=== PATIENT | female | born 1990 | race Caucasian/White ===

== ENCOUNTER → 2018-01-12 | Outpatient (CLI) | payer OTHER | END | disposition home or self-care (01) | LOC: HKI 13:33 | DX: M22.2X1 Patellofemoral disorders, right knee (principal) | CPT/HCPCS: 20610 ==

== ENCOUNTER 2018-03-08 04:51 | Inpatient (IN) | payer OTHER ==
[2018-03-08] MEDS ORDERED: morphine 2 MG INJ IV (06:00)
[2018-03-08] MEDS ORDERED: ACETAMINOPHEN 325 MG TAB PO (06:00)
[2018-03-08] MEDS ORDERED: NACL 0.9% 3 ML SYG IV (06:00)
[2018-03-08] MEDS: morphine 4 MG/ML VIAL IV (06:29)
[2018-03-08] MEDS ORDERED: VANCOMYCIN IV PER PHARMACY XX (07:30)
[2018-03-08] MEDS: CEFEPIME 1GM/50 ML (PMX) 50 ML IVPB ×3 (08:18→21:34)
[2018-03-08] MEDS: HYDROCODONE/APAP (5/325) TAB PO ×2 (08:18→16:38)
[2018-03-08] MEDS: ENOXAPARIN 40 MG/0.4 ML SYG SC (08:20)
[2018-03-08 08:38] LABS: ADD MAN DIFF? NO
[2018-03-08 08:45] LABS: WHITE BLOOD COUNT 7.8 10^3/ul (4.8-10.8)
[2018-03-08 08:45] LABS: BASOPHILS % 0.3 % (0.0-2.0); EOSINOPHILS # 0.3 10^3/ul (0.0-0.5); EOSINOPHILS % 3.2 % (0.0-7.0); HEMATOCRIT 39.9 % (37.0-47.0); HEMOGLOBIN 12.6 g/dl (12.0-16.0); LYMPHOCYTES # 1.8 10^3/ul (0.8-2.9); LYMPHOCYTES % 23.7 % (15.0-51.0); MEAN CORPUSCULAR HEMOGLOBIN 27.6 pg (29.0-33.0); MEAN CORPUSCULAR HGB CONC 31.6 g/dl (32.0-37.0); MEAN CORPUSCULAR VOLUME 87.5 fl (82.0-101.0); MEAN PLATELET VOLUME 11.3 fl (7.4-10.4); MONOCYTE # 0.5 10^3/ul (0.3-0.9); MONOCYTES % 6.4 % (0.0-11.0); NEUTROPHIL # 5.1 10^3/ul (1.6-7.5); PLATELET COUNT 282 10^3/UL (140-415); RED BLOOD COUNT 4.56 10^6/ul (4.20-5.40); RED CELL DISTRIBUTION WIDTH 13.1 % (11.5-14.5)
[2018-03-08] MEDS ORDERED: CEFEPIME 1GM/50 ML (PMX) 50 ML IVPB (09:00)
[2018-03-08 09:06] LABS: ALANINE AMINOTRANSFERASE 28 IU/L (13-69); ALBUMIN 3.7 g/dl (3.3-4.9); ALBUMIN/GLOBULIN RATIO 1.19; ALKALINE PHOSPHATASE 84 IU/L (42-121); ANION GAP 9 (5-13); ASPARTATE AMINO TRANSFERASE 24 IU/L (15-46); BILIRUBIN,INDIRECT 0.1 mg/dl (0-1.1); BILIRUBIN,TOTAL 0.1 mg/dl (0.2-1.3); BLOOD UREA NITROGEN 15 mg/dl (7-20); CALCIUM 8.8 mg/dl (8.4-10.2); CARBON DIOXIDE 25 mmol/L (21-31); CHLORIDE 107 mmol/L (97-110); CHOL/HDL RATIO 3.4 RATIO; CHOLESTEROL 99 mg/dl (100-200); CREATININE 0.71 mg/dl (0.44-1.00); Estimated GFR > 60 mL/min (>60); GLUCOSE 97 mg/dl (70-220); HDL CHOLESTEROL 29 mg/dl (33-83); LDL CHOLESTEROL,CALCULATED 44 mg/dl; POTASSIUM 4.3 mmol/L (3.5-5.1); SODIUM 141 mmol/L (135-144); TOTAL PROTEIN 6.8 g/dl (6.1-8.1); TRIGLYCERIDES 129 mg/dl (0-149)
[2018-03-08 09:25] LABS: HEMOGLOBIN A1C 5.7 % (0-5.9)
[2018-03-08] MEDS: VANCOMYCIN HCL 2 GM in SOD CHLORIDE 0.9% 500 ML IVPB (09:50)
[2018-03-08] MEDS: ONDANSETRON 4 MG INJ IV (17:52)
[2018-03-08] MEDS: VANCOMYCIN 1 GM 250 ML IVPB (17:52)
[2018-03-09] MEDS: VANCOMYCIN 1 GM 250 ML IVPB ×3 (01:49→17:21)
[2018-03-09 05:19] LABS: ADD MAN DIFF? NO
[2018-03-09 05:25] LABS: WHITE BLOOD COUNT 6.5 10^3/ul (4.8-10.8)
[2018-03-09 05:25] LABS: BASOPHILS % 0.3 % (0.0-2.0); EOSINOPHILS # 0.2 10^3/ul (0.0-0.5); EOSINOPHILS % 3.2 % (0.0-7.0); HEMATOCRIT 39.1 % (37.0-47.0); HEMOGLOBIN 12.4 g/dl (12.0-16.0); LYMPHOCYTES # 1.9 10^3/ul (0.8-2.9); LYMPHOCYTES % 28.5 % (15.0-51.0); MEAN CORPUSCULAR HEMOGLOBIN 27.5 pg (29.0-33.0); MEAN CORPUSCULAR HGB CONC 31.7 g/dl (32.0-37.0); MEAN CORPUSCULAR VOLUME 86.7 fl (82.0-101.0); MEAN PLATELET VOLUME 11.4 fl (7.4-10.4); MONOCYTE # 0.5 10^3/ul (0.3-0.9); MONOCYTES % 7.4 % (0.0-11.0); NEUTROPHIL # 3.9 10^3/ul (1.6-7.5); NEUTROPHILS % 60.1 % (39.0-77.0); PLATELET COUNT 271 10^3/UL (140-415); RED BLOOD COUNT 4.51 10^6/ul (4.20-5.40); RED CELL DISTRIBUTION WIDTH 13.2 % (11.5-14.5)
[2018-03-09] MEDS: CEFEPIME 1GM/50 ML (PMX) 50 ML IVPB ×3 (05:38→21:42)
[2018-03-09 05:49] LABS: ANION GAP 9 (5-13); BLOOD UREA NITROGEN 12 mg/dl (7-20); CALCIUM 9.1 mg/dl (8.4-10.2); CARBON DIOXIDE 25 mmol/L (21-31); CHLORIDE 105 mmol/L (97-110); CREATININE 0.69 mg/dl (0.44-1.00); Estimated GFR > 60 mL/min (>60); GLUCOSE 106 mg/dl (70-220); PHOSPHORUS 4.7 mg/dl (2.5-4.9); POTASSIUM 4.4 mmol/L (3.5-5.1); SODIUM 139 mmol/L (135-144)
[2018-03-09] MEDS: HYDROCODONE/APAP (5/325) TAB PO ×2 (06:36→22:01)
[2018-03-09] MEDS: ENOXAPARIN 40 MG/0.4 ML SYG SC (08:26)
[2018-03-09 09:30] LABS: VANCOMYCIN,TROUGH 11.3 ug/ml (10.0-20.0)
[2018-03-10] MEDS: VANCOMYCIN 1 GM 250 ML IVPB ×2 (02:01→10:12)
[2018-03-10] MEDS: CEFEPIME 1GM/50 ML (PMX) 50 ML IVPB ×2 (05:25→14:20)
[2018-03-10] MEDS: HYDROCODONE/APAP (5/325) TAB PO ×2 (08:13→14:17)
[2018-03-10] MEDS: ENOXAPARIN 40 MG/0.4 ML SYG SC (08:15)
[2018-03-10] MEDS ORDERED: MAGNESIUM HYDROXIDE 30ML CUP PO (20:30)
[2018-03-10] MEDS: CEPHALEXIN 500 MG CAP PO ×2 (21:09→23:44)
[2018-03-10] MEDS: LORAZEPAM 2 MG INJ IV (21:46)
[2018-03-10] MEDS: ALBUTEROL/IPRATROPIUM (NEB) 3 ML AMP HHN (22:05)
[2018-03-10] MEDS: MAGNESIUM HYDROXIDE 30ML CUP PO (23:24)
[2018-03-11] MEDS: CEPHALEXIN 500 MG CAP PO ×4 (05:35→23:54)
[2018-03-11] MEDS: HYDROCODONE/APAP (5/325) TAB PO (05:41)
[2018-03-11] MEDS: SENNA TAB PO (08:32)
[2018-03-11] MEDS: ENOXAPARIN 40 MG/0.4 ML SYG SC (08:32)
[2018-03-11] MEDS: TRIMETHOPRIM/SULFAMETHOX (DS) TAB PO ×2 (14:34→23:54)
[2018-03-11] MEDS: HYDROCORTISONE 100 MG INJ IV (15:41)
[2018-03-11] MEDS: FLUTICASONE/VILANTEROL 200-25 INH DEVICE INH (15:41)
[2018-03-11] MEDS: MONTELUKAST 10 MG TAB PO (20:23)
[2018-03-12] MEDS: CEPHALEXIN 500 MG CAP PO ×2 (05:41→13:27)
[2018-03-12] MEDS: FLUTICASONE/VILANTEROL 200-25 INH DEVICE INH (08:47)
[2018-03-12] MEDS: SENNA TAB PO (08:47)
[2018-03-12] MEDS: TRIMETHOPRIM/SULFAMETHOX (DS) TAB PO (08:47)
[2018-03-12] MEDS: ENOXAPARIN 40 MG/0.4 ML SYG SC (08:48)
== END 2018-03-12 13:47 | disposition home or self-care (01) | DRG 603 ==
LOC: PP2 03-11 12:48
DX: L03.116 Cellulitis of left lower limb (principal); Z68.42 Body mass index [BMI] 45.0-49.9, adult; E66.01 Morbid (severe) obesity due to excess calories; M25.462 Effusion, left knee; M25.461 Effusion, right knee; J45.40 Moderate persistent asthma, uncomplicated
CPT/HCPCS: 71045; 73560; 73610; 73630-LT; 73721; 80048; 80053; 80061; 80202; 83036; 83735; 84100; 85025; 90686; 93971; 94664

== ENCOUNTER 2018-05-20 10:40 | Inpatient (IN) | payer OTHER ==
[2018-05-20] MEDS ORDERED: ZOLPIDEM 5 MG TAB PO (13:00)
[2018-05-20] MEDS ORDERED: ONDANSETRON 4 MG INJ IV (13:00)
[2018-05-20] MEDS: CEFTRIAXONE 1 GM/50 ML (PMX) 50 ML IVPB (13:00)
[2018-05-20] MEDS ORDERED: morphine 2 MG INJ IV (13:00)
[2018-05-20] MEDS ORDERED: ALBUTEROL 0.083% (NEB) 2.5 MG/3 ML AMP HHN (13:00)
[2018-05-20] MEDS ORDERED: DOCUSATE SODIUM 100 MG CAP PO (13:00)
[2018-05-20] MEDS ORDERED: NACL 0.9% 3 ML SYG IV (13:00)
[2018-05-20] MEDS ORDERED: HYDROCODONE/APAP (5/325) TAB PO (13:00)
[2018-05-20] MEDS: ACETAMINOPHEN 325 MG TAB PO (13:50)
[2018-05-20] MEDS: AZITHROMYCIN 500MG/NS (PMX) 250 ML IVPB (14:00)
[2018-05-20] MEDS: FLUTICASONE/VILANTEROL 200-25 INH DEVICE INH (16:25)
[2018-05-20] MEDS: MONTELUKAST 10 MG TAB PO (21:08)
[2018-05-21 05:46] LABS: ADD MAN DIFF? NO
[2018-05-21 06:09] LABS: ANION GAP 13 (5-13); BLOOD UREA NITROGEN 13 mg/dl (7-20); CALCIUM 9.3 mg/dl (8.4-10.2); CARBON DIOXIDE 22 mmol/L (21-31); CHLORIDE 107 mmol/L (97-110); CREATININE 0.66 mg/dl (0.44-1.00); Estimated GFR > 60 mL/min (>60); GLUCOSE 138 mg/dl (70-220); MAGNESIUM 2.1 mg/dl (1.7-2.5); PHOSPHORUS 3.6 mg/dl (2.5-4.9); POTASSIUM 4.3 mmol/L (3.5-5.1); SODIUM 142 mmol/L (135-144)
[2018-05-21 06:10] LABS: HEMOGLOBIN A1C 5.4 % (0-5.9)
[2018-05-21 06:16] LABS: BASOPHILS % 0.3 % (0.0-2.0); EOSINOPHILS # 0.1 10^3/ul (0.0-0.5); EOSINOPHILS % 0.4 % (0.0-7.0); HEMATOCRIT 41.3 % (37.0-47.0); HEMOGLOBIN 13.5 g/dl (12.0-16.0); LYMPHOCYTES # 2.3 10^3/ul (0.8-2.9); LYMPHOCYTES % 15.4 % (15.0-51.0); MEAN CORPUSCULAR HEMOGLOBIN 27.4 pg (29.0-33.0); MEAN CORPUSCULAR HGB CONC 32.7 g/dl (32.0-37.0); MEAN CORPUSCULAR VOLUME 83.8 fl (82.0-101.0); MEAN PLATELET VOLUME 11.6 fl (7.4-10.4); MONOCYTE # 0.7 10^3/ul (0.3-0.9); MONOCYTES % 4.9 % (0.0-11.0); NEUTROPHIL # 11.5 10^3/ul (1.6-7.5); PLATELET COUNT 316 10^3/UL (140-415); RED BLOOD COUNT 4.93 10^6/ul (4.20-5.40); RED CELL DISTRIBUTION WIDTH 13.4 % (11.5-14.5)
[2018-05-21 06:16] LABS: WHITE BLOOD COUNT 14.7 10^3/ul (4.8-10.8)
[2018-05-21 06:19] LABS: POSITIVE DIFF @See below
[2018-05-21] MEDS: FLUTICASONE/VILANTEROL 200-25 INH DEVICE INH (08:36)
[2018-05-21] MEDS: ENOXAPARIN 40 MG/0.4 ML SYG SC (08:38)
[2018-05-21] MEDS: CEFTRIAXONE 1 GM/50 ML (PMX) 50 ML IVPB (12:29)
[2018-05-21] MEDS: AZITHROMYCIN 500MG/NS (PMX) 250 ML IVPB (13:24)
== END 2018-05-21 18:37 | disposition home or self-care (01) | DRG 194 ==
LOC: 2NE 10:40
PROVIDERS: Internal Medicine
DX: J18.9 Pneumonia, unspecified organism (principal); J45.901 Unspecified asthma with (acute) exacerbation; Z68.42 Body mass index [BMI] 45.0-49.9, adult; E66.01 Morbid (severe) obesity due to excess calories; R06.03 Acute respiratory distress
CPT/HCPCS: 80048; 83036; 83735; 84100; 85025

== ENCOUNTER 2018-06-29 13:28 | Day surgery (SDC) | payer OTHER ==
[2018-06-29] MEDS ORDERED: CEFAZOLIN 2 GM/50 ML (PMX) 50 ML IVPB (13:30)
[2018-06-29] MEDS ORDERED: LACTATED RINGER'S 1,000 ML (ENTER RATE) IV (13:30)
[2018-06-29] MEDS ORDERED: FENTAnyl 50 MCG/ML VIAL ×2 (14:59→15:36)
[2018-06-29] MEDS ORDERED: PROPOFOL 20 ML ×2 (14:59→15:34)
[2018-06-29] MEDS ORDERED: MIDAZOLAM 1 MG/ML 2 ML INJ (14:59)
[2018-06-29] MEDS ORDERED: HYDROmorphONE 1 MG/5 ML IV SYRINGE IV ×2 (15:30)
[2018-06-29] MEDS ORDERED: ALBUTEROL 0.083% (NEB) 2.5 MG/3 ML AMP HHN (15:30)
[2018-06-29] MEDS ORDERED: OXYCODONE/ACETAMINOPHEN (5/325) TAB PO ×2 (15:30)
[2018-06-29] MEDS ORDERED: ONDANSETRON 4 MG INJ IV (15:30)
[2018-06-29] MEDS ORDERED: METOCLOPRAMIDE 10 MG INJ IV (15:30)
[2018-06-29] MEDS ORDERED: EPHEDrine 25 MG/5 ML SYG IV (15:30)
[2018-06-29] MEDS ORDERED: CEFAZOLIN 1 GM INJ (15:34)
[2018-06-29] MEDS: BUPIVACAINE 0.5% (SDV) 30 ML INJ (15:41)
[2018-06-29] MEDS ORDERED: ONDANSETRON 4 MG INJ (15:42)
[2018-06-29] MEDS ORDERED: METOCLOPRAMIDE 10 MG INJ (15:42)
[2018-06-29] MEDS ORDERED: KETOROLAC 30 MG INJ (15:42)
[2018-06-29] MEDS ORDERED: DEXAMETHASONE 4 MG/ML 5 ML INJ (15:42)
[2018-06-29] MEDS: HYDROmorphONE 1 MG/5 ML IV SYRINGE IV (16:19)
== END 2018-06-29 17:40 | disposition home or self-care (01) ==
LOC: SDS 13:28
DX: G56.01 Carpal tunnel syndrome, right upper limb (principal); E03.9 Hypothyroidism, unspecified; J45.909 Unspecified asthma, uncomplicated; E78.1 Pure hyperglyceridemia
CPT/HCPCS: 64721; 82962